=== PATIENT | female | born 1950 | race Two or more races ===

== ENCOUNTER 2022-01-29 14:19 | Emergency (ER) | payer BC ==
[~2022-01-29] VITALS: Ht 162.6 cm; Wt 87.0 kg
[2022-01-29 14:24] VITALS: BP 164/74
[2022-01-29] MEDS ORDERED: T3 PO (17:23)
[2022-01-29] MEDS ORDERED: AMOX1TAB16 MT (17:23)
[2022-01-29] MEDS ORDERED: ACETAMINOPHEN 325MG TABLET PO ONE (17:30)
[2022-01-29] MEDS ORDERED: AMOXICILLIN/POTASSIUM CLAVULANATE 875/125MG TAB PO ONE (17:30)
== END 2022-01-29 18:46 | disposition home or self-care (01) ==
LOC: ER 14:19
DX: K04.7 Periapical abscess without sinus (principal); K02.9 Dental caries, unspecified; I10 Essential (primary) hypertension; E78.00 Pure hypercholesterolemia, unspecified
CPT/HCPCS: 99283